=== PATIENT | male | born 1990 | race African-American/Black ===

== ENCOUNTER 2018-10-26 17:54 | Observation (INO) | payer OTHER, SELFPAY ==
[2018-10-26 18:46] LABS: #Basophils 0.1 thou/uL (0.0-0.2); #Eosinphils 0.1 thou/uL (0.0-0.7); #Lymphocytes 2.7 thou/uL (1.20-3.40); #Monocytes 0.6 thou/uL (0.11-0.59); %Basophils 1.4 % (0.0-1.0); %Eosinophils 1.4 % (0.0-10.0); %Lymphocytes 36.1 % (21.0-51.0); %Monocytes 7.6 % (0.0-10.0); %Neutrophils 53.5 % (42.0-75.0); Hemoglobin 14.2 g/dL (14.0-18.0); Mean Corpuscular HGB CONC 33.2 g/dL (32.0-36.0); Mean Corpuscular Hemoglobin 29.3 pg (27.0-31.0); Mean Corpuscular Volume 88.1 fL (78.0-98.0); Mean Platelet Volume 6.5 fL (7.4-10.4); Platelet Count 245 thou/uL (130-400); RBC Distribution Width 11.9 % (11.5-14.5); Red Blood Cell (RBC) Count 4.84 mill/uL (4.70-6.10); White Blood Cell (WBC) Count 7.6 thou/uL (4.8-10.8)
[2018-10-26 19:07] LABS: ALT (SGPT) 16 U/L (8-55); AST (SGOT) 22 U/L (5-34); Albumin 4.1 g/dL (3.5-5.0); Alkaline Phosphatase 70 U/L (40-150); Anion Gap 10 mmol/L (10-20); BUN (Urea Nitrogen) 11 mg/dL (8.9-20.6); Bilirubin, Total 0.7 mg/dL (0.2-1.2); CK (CPK) 956 U/L (30-200); Calc. Creatinine Clearance 0 mL/min (70-130); Calcium 9.1 mg/dL (7.8-10.44); Carbon Dioxide 27 mmol/L (22-29); Chloride 104 mmol/L (98-107); Estimated GFR-MDRD Greater than 90; Globulin 3.2 g/dL (2.4-3.5); Glucose 94 mg/dL (70-105); Lipase 24 U/L (8-78); Potassium 3.3 mmol/L (3.5-5.1); Protein, Total 7.3 g/dL (6.0-8.3); Sodium 138 mmol/L (136-145)
[2018-10-26 19:12] LABS: CKMB 1.6 ng/mL (0-6.6); Troponin I Less than 0.010 ng/mL (< 0.028)
[2018-10-26 19:15] LABS: Bilirubin Negative (Negative); Blood, Urine Negative (Negative); Clarity CLEAR (Clear); Glucose, Urine (Dipstick) Negative (Negative); Leukocyte Negative (Negative); Nitrite Negative (Negative); Protein, Urine (Dipstick) Negative (Neg-Trace)
[2018-10-26 19:26] LABS: Amphetamine Not Detected (NotDetected); Barbiturates Screen Not Detected (NotDetected); Benzodiazepine Screen Not Detected (NotDetected); Cocaine Metabolite Screen Not Detected (NotDetected); Medtox Control Line Valid? VALID (VALID); Medtox Reader # READER 4; Methadone Not Detected (NotDetected); Methamphetamine Not Detected (NotDetected); Opiate Screen Not Detected (NotDetected); Oxycodone Screen Not Detected (NotDetected); Phencyclidine (PCP) Not Detected (NotDetected); THC/Cannabinoid Screen Not Detected (NotDetected); Tricyclic Screen Not Detected (NotDetected)
--- NOTE | 2018-10-26 20:40 | RAD ---
PORTABLE CHEST: HISTORY: Chest pain. COMPARISON: 04/12/2011 FINDINGS: Heart size and mediastinum are within normal limits. A pacemaker is present. The lungs are clear of infiltrates. IMPRESSION: No active intrathoracic disease. POS: [facility]
[2018-10-26 21:58] LABS: Troponin I Less than 0.010 ng/mL (< 0.028)
[2018-10-26] MEDS ORDERED: Acetaminophen 325 MG TAB PO PRN (22:47)
[2018-10-26] MEDS ORDERED: Bisacodyl 5 MG TAB PO PRN (22:47)
[2018-10-26] MEDS ORDERED: Senokot S 8.6-50 MG TAB PO PRN (22:47)
[2018-10-26] MEDS ORDERED: Acetaminophen 325 MG TAB ONE (23:13)
[2018-10-27 00:56] LABS: Troponin I Less than 0.010 ng/mL (< 0.028)
[2018-10-27 01:32] VITALS: BMI 34.1
[2018-10-27] MEDS: Sodium Chloride 0.9% 1,000 ML IV SCH ×3 (01:35→22:34)
[2018-10-27 06:44] LABS: #Basophils 0.1 thou/uL (0.0-0.2); #Eosinphils 0.1 thou/uL (0.0-0.7); #Lymphocytes 2.8 thou/uL (1.20-3.40); #Monocytes 0.7 thou/uL (0.11-0.59); #Neutrophils 4.5 thou/uL (1.40-6.50); %Basophils 0.7 % (0.0-1.0); %Eosinophils 1.6 % (0.0-10.0); %Monocytes 8.1 % (0.0-10.0); %Neutrophils 55.6 % (42.0-75.0); Hemoglobin 13.3 g/dL (14.0-18.0); Mean Corpuscular HGB CONC 33.1 g/dL (32.0-36.0); Mean Corpuscular Hemoglobin 29.5 pg (27.0-31.0); Mean Corpuscular Volume 89.1 fL (78.0-98.0); Mean Platelet Volume 6.7 fL (7.4-10.4); Platelet Count 232 thou/uL (130-400); RBC Distribution Width 11.8 % (11.5-14.5); Red Blood Cell (RBC) Count 4.52 mill/uL (4.70-6.10); White Blood Cell (WBC) Count 8.2 thou/uL (4.8-10.8)
[2018-10-27 06:58] LABS: Anion Gap 11 mmol/L (10-20); BUN (Urea Nitrogen) 13 mg/dL (8.9-20.6); Calc. Creatinine Clearance 235 mL/min (70-130); Calcium 8.7 mg/dL (7.8-10.44); Carbon Dioxide 26 mmol/L (22-29); Cardiac Risk 3.5 (Less than 4.5); Chloride 107 mmol/L (98-107); Cholesterol 137 mg/dl (< 200 Desired); Estimated GFR-MDRD Greater than 90; Glucose 89 mg/dL (70-105); HDL Cholesterol 39 mg/dL (>60 Neg Risk); LDL Cholesterol, Calculated 85 mg/dL; Potassium 3.6 mmol/L (3.5-5.1); Sodium 140 mmol/L (136-145); Triglycerides 65 mg/dL (Less than 150)
--- NOTE | 2018-10-27 07:18 | HP ---
CHIEF COMPLAINT: Chest pain. HISTORY OF PRESENT ILLNESS: This is a 28-year-old male with a past medical history of atrial fibrillation, history of hypertension, status post pacemaker, presenting with chest pain. The patient states that his chest pain started around 1 p.m., on the day of admission and worsened around 3 p.m., on the day of admission. The patient reports having some tingling sensation in his feet and his finger, and his pain was 5/10, sharp in nature, and this prompted him to come to the ED to be examined. At this point, the patient is saying that his chest pain has resolved completely, and he does not have any pain at this time. The patient states that he has a history of syncope when he was young, and the patient stated that due to this syncope and him having heart problems, he was given the pacemaker. At this point, the patient is also asking about his erection. The patient stated that he has not been having good erection, and he is wondering if the medication that he is taking is contributing to this. REVIEW OF SYSTEMS: At this point, the patient denies any chest pain, and the patient reports paresthesias. As documented in the HPI, all systems are reviewed and are negative at this time. PAST MEDICAL HISTORY: Atrial fibrillation, status post pacemaker and hypertension. FAMILY HISTORY: The patient's dad at the age of 58 from heart problem. PAST SURGICAL HISTORY: Pacemaker. PSYCHIATRIC HISTORY: The patient has a history of depression. SOCIAL HISTORY: The patient smokes 1 pack per day. The patient states that he tried to quit, but recently, he just started smoking again and has been smoking heavily since he picked it up again. The patient denies alcohol use, and the patient denies any illicit drug use. ALLERGIES: THE PATIENT IS ALLERGIC TO TRAZODONE. CURRENT MEDICATIONS: The patient takes: 1. Metoprolol tartrate 25 mg. 2. Lisinopril 20 mg. PHYSICAL EXAMINATION: VITAL SIGNS: The patient's blood pressure is 115/60, pulse of 63, respiratory rate of 18, O2 saturation of 100 on room air. GENERAL: The patient is awake, alert, oriented x3, not in acute distress. The patient seemed to be very sleepy every now and then, and the patient drifts off, and the patient was asleep. HEENT: Normocephalic and atraumatic. Pupils are equally round and reactive to light. Extraocular movements are intact. No scleral icterus. No conjunctival pallor. Mucous membranes are moist. NECK: Trachea is midline. Full range of motion. No tracheal deviation. No meningeal signs. LUNGS: Clear to auscultation bilaterally. No wheezing, no rales, no rhonchi appreciated. CARDIAC: The patient has 2/6 ejection murmur. Positive S1 and S2. ABDOMEN: Soft, nontender, and nondistended. Positive bowel sounds in all quadrants. No peritoneal signs. EXTREMITIES: 5/5 upper extremity strength. 5/5 lower extremity strength. No edema noted. Good pulses bilaterally at the upper and lower extremities. NEUROLOGIC: Cranial nerves 2 through 12 grossly intact. No neurologic deficits noted. SKIN: Warm, dry, and intact. DIAGNOSTIC DATA: 12-lead EKG shows normal sinus rhythm with a rate of 96. Chest x-ray shows no infiltrates. No pneumothorax. No hemothorax. No masses. No cardiomegaly. No congestive heart failure. No effusion. No free air. The patient's defibrillator is noted. Chest CT is negative for any PE. LABORATORY DATA: WBC is 7.6, hemoglobin is 14.2, hematocrit is 42.6, RDW of 11.9, platelet count of 245. D-dimer less than 0.27. Sodium is 138, potassium is 3.3, chloride is 104, carbon dioxide of 27, anion gap of 10, BUN is 11, creatinine is 0.83, GFR is less than 90. AST 22, ALT 16. Creatine kinase 956. Troponin x3 has been negative, 0.010. BNP is less than 10. Lipase is 24. Urinalysis is negative. Urine toxicology is also negative. ASSESSMENT AND PLAN: This is a 28-year-old male with extensive cardiac history, presenting with chest pain. At this point, we will rule out acute coronary syndrome. The patient is going to be placed on observation. We are going to monitor the patient, and we are going to get a packer fuser to see the patient in the a.m. We will continue the patient on current regimen. We will get an echo since the patient has not gotten an echo in the past couple of years. History of hypertension. Currently, the patient's blood pressure is controlled. We will continue the patient on current medication. At this point, we will advise that Cardiology evaluate the patient's metoprolol since metoprolol can cause erectile dysfunction to weighing on the benefit of metoprolol versus the patient's erectile dysfunction. The patient is very worried about not being able to have good erection. History of atrial fibrillation, currently not on any anticoagulation at this time. The patient is in sinus rhythm, and the patient has a pacemaker. At this point, we will continue to monitor the patient. History of depression. We will continue the patient on his current medications, and we will continue to monitor the patient closely. Deep venous thrombosis and gastrointestinal prophylaxis. Job ID: [id number]
[2018-10-27] MEDS: Famotidine/PF 20 mg/2ml Vial SLOW IVP SCH ×2 (09:25→22:04)
[2018-10-27] MEDS: Aspirin 325 MG TAB PO SCH (10:27)
[2018-10-27] MEDS: Famotidine 20 MG TAB PO SCH ×2 (10:27→21:07)
--- NOTE | 2018-10-27 13:56 | PDOC.PN ---
- Subjective Encounter Start Date: 10/27/18 Encounter Start Time: 13:55 Pt seen for followup re: chest pain. Denies chest pain at this time. No fevers or chills. - Objective Resuscitation Status - Order Detail: 10/26/18 22:47 Resuscitation Status Routine Resuscitation Status: FULL: Full Resuscitation MAR Reviewed: Yes Vital Signs & Weight: Vital Signs (12 hours) Temp Pulse Resp BP Pulse Ox 10/27/18 11:50 97.7 F 64 16 130/60 98 10/27/18 07:32 98.0 F 64 16 135/66 98 10/27/18 06:32 98 10/27/18 04:52 98.2 F 65 16 131/66 97 Weight Weight 273 lb I&O: 10/26/18 10/27/18 10/28/18 06:59 06:59 06:59 Intake Total 718 Balance 718 Result Diagrams: 10/27/18 06:28 10/27/18 06:28 EKG Reviewed by me: Yes (Tele: NSR) Phys Exam - Physical Examination Obese HEENT: moist MMs, sclera anicteric, oral pharynx no lesions, 2+ tonsils Neck: no nodes, no JVD, supple, full ROM Respiratory: no wheezing, no rales, no rhonchi, clear to auscultation bilateral Cardiovascular: RRR, no rub S1, S2 Gastrointestinal: soft, non-tender, no distention, positive bowel sounds Neurological: moves all 4 limbs Psychiatric: normal affect, A&O x 3 Dx/Plan (1) Chest pain Code(s): R07.9 - CHEST PAIN, UNSPECIFIED Status: Acute Comment: monitor on telemetry. Troponins negative. Interrogate PPM. (2) HTN (hypertension) Code(s): I10 - ESSENTIAL (PRIMARY) HYPERTENSION Status: Chronic Comment: controlled (3) Dyslipidemia Code(s): E78.5 - HYPERLIPIDEMIA, UNSPECIFIED Status: Chronic Comment: continue statin - Plan * . Review of Systems - Review of Systems Constitutional: negative: fever, chills, sweats, weakness, malaise Respiratory: negative: Cough, Shortness of Breath, SOB with Excertion, Pleuritic Pain, Wheezing Cardiovascular: negative: chest pain, palpitations, orthopnea, paroxysmal nocturnal dyspnea, edema, light headedness Gastrointestinal: negative: Nausea, Vomiting, Abdominal Pain, Diarrhea, Constipation, Melena, Hematochezia Genitourinary: negative: Dysuria, Frequency, Incontinence, Hematuria, Retention Skin: negative: Rash, Lesions, Jim, Bruising - Medications/Allergies Allergies/Adverse Reactions: Allergies Allergy/AdvReac Type Severity Reaction Status Date / Time trazodone Allergy Verified 10/26/18 22:57 Medications: Current Medications Acetaminophen (Tylenol) 650 mg PO Q4H PRN PRN Reason: Headache/Fever/Mild Pain (1-3) Aspirin (Aspirin) 325 mg PO DAILY [facility] Last Admin: 10/27/18 10:27 Dose: 325 mg Bisacodyl (Dulcolax) 10 mg PO DAILYPRN PRN PRN Reason: Constipation Famotidine (Pepcid) 20 mg SLOW IVP Q12HR [facility] Last Admin: 10/27/18 09:25 Dose: Not Given Famotidine (Pepcid) 20 mg PO BID [facility] Last Admin: 10/27/18 10:27 Dose: 20 mg Sodium Chloride (Normal Saline 0.9%) 1,000 mls @ 100 mls/hr IV .Q10H [facility] Last Admin: 10/27/18 11:56 Dose: 1,000 mls Senna/Docusate Sodium (Senokot S) 2 tab PO BIDPRN PRN PRN Reason: Constipation Sodium Chloride (Flush - Normal Saline) 10 ml IVF Q12HR [facility] Last Admin: 10/27/18 10:27 Dose: Not Given Sodium Chloride (Flush - Normal Saline) 10 ml IVF PRN PRN PRN Reason: Saline Flush
[2018-10-27] MEDS ORDERED: Potassium Chloride 20 MEQ TAB PO SCH (17:00)
[2018-10-27] MEDS: Metoprolol Tartrate 25 MG TAB PO SCH (21:07)
--- NOTE | 2018-10-28 04:14 | CON ---
DATE OF CONSULTATION: HISTORY OF PRESENT ILLNESS: Alvin Encarnacion is a 28-year-old black male, who I initially evaluated in November 2009. At that time, he had chest discomfort associated with shortness of breath and at times with the chest discomfort, he would have syncopal episode. He had had near syncopal episodes since the age of 16. Echo revealed ejection fraction of 40% to 45%. During the hospital stay, he would occasionally have episodes of bradycardia with heart rates in the 40s. He underwent a tilt-table testing by Dr. Grewal, which was negative. He underwent Cardiolite treadmill test and exercised for 9 minutes and 30 seconds. He had early repolarization on his EKG with normalization of the ST-segment during exercise. EKG was negative for ischemia. Cardiolite revealed no evidence of stress-induced ischemia, but with hypokinesis with ejection fraction of 48%. In May 2010, he was again admitted with chest discomfort, found to have rhabdomyolysis with CK increased to 12,000 and then 20,000. He was given IV hydration. Ejection fraction again was 45% to 50%. He continued to have recurrent syncope, ultimately he underwent electrophysiology study by Dr. Kelly, which did not show any specific conduction system disease or inducible arrhythmias. An implantable loop recorder was placed. He had another syncopal episode and was brought to the emergency room and on interrogation of the device, it was found that he had pauses up to 15 seconds. He therefore underwent explantation of the implantable loop recorder and placement of a dual-chamber pacemaker. I saw him once in the office after that, but I have not seen him since 2010. He states that he got out of snf one week ago. He was having intercourse and had problems with erection and then began to have sharp stabbing chest discomfort. This chest discomfort would wax and wane, but was continuously present for 4 hours. The discomfort also was pleuritic in nature. Cardiac enzymes have been unremarkable. PAST MEDICAL HISTORY: Hypertension. PAST SURGICAL HISTORY: Operation, pacemaker placement. SOCIAL HISTORY: He smokes one pack per day. He does not drink. MEDICATIONS: 1. Metoprolol 25 mg daily. 2. Lisinopril 20 daily. 3. Hydrochlorothiazide 25 daily. 4. Pravastatin 10 at bedtime. REVIEW OF SYSTEMS: Unremarkable except as noted above. PHYSICAL EXAMINATION: VITAL SIGNS: Blood pressure 139/70, pulse of 87. HEENT: PERRL. NECK: Supple. CHEST: Clear. CARDIAC EXAMINATION: S1 and S2 were normal without any S3, S4, murmurs, or rubs. ABDOMEN: Normal bowel sounds without tenderness or organomegaly. EXTREMITIES: Revealed no clubbing, cyanosis, or edema. NEUROLOGICAL: Grossly intact. SKIN: Warm and dry. LABORATORY DATA: Laboratory interrogation of his pacemaker shows that he does have episodes of high atrial rates at times. Last episode was on October 25 with the longest episode being 50 minutes. The time he noted these episodes do not correlate with his episodes of chest discomfort. EKG revealed normal sinus rhythm and is unremarkable. Cardiac enzymes are normal. Hemoglobin 13.3, hematocrit 40.3, white count 8200, platelets 232,000. Sodium 140, potassium 3.6, chloride 107, carbon dioxide 26, BUN 13, creatinine 0.82. Cholesterol 137, triglycerides 65, HDL 39, LDL 85. CK was 956 with a normal CK-MB. IMPRESSION: 1. Atypical chest discomfort with 4 hours of pleuritic chest pain and normal cardiac enzymes. 2. Status post pacemaker placement for 15 seconds of asystole on his loop recorder. 3. Hypertension. 4. Hypercholesterolemia. 5. Smoker. PLAN: Mr. Encarnacion's chest discomfort is very atypical for cardiac pain. He will undergo adenosine Cardiolite testing and if this is normal, I do not feel that any further cardiac evaluation is warranted. Job ID: [id number]
[2018-10-28 04:26] LABS: #Basophils 0.1 thou/uL (0.0-0.2); #Eosinphils 0.1 thou/uL (0.0-0.7); #Lymphocytes 2.7 thou/uL (1.20-3.40); #Monocytes 0.7 thou/uL (0.11-0.59); #Neutrophils 4.8 thou/uL (1.40-6.50); %Basophils 1.2 % (0.0-1.0); %Eosinophils 1.6 % (0.0-10.0); %Lymphocytes 32.2 % (21.0-51.0); %Monocytes 8.3 % (0.0-10.0); %Neutrophils 56.6 % (42.0-75.0); Hemoglobin 13.5 g/dL (14.0-18.0); Mean Corpuscular HGB CONC 33.5 g/dL (32.0-36.0); Mean Corpuscular Hemoglobin 29.7 pg (27.0-31.0); Mean Corpuscular Volume 88.6 fL (78.0-98.0); Mean Platelet Volume 6.7 fL (7.4-10.4); Platelet Count 246 thou/uL (130-400); RBC Distribution Width 11.8 % (11.5-14.5); Red Blood Cell (RBC) Count 4.55 mill/uL (4.70-6.10); White Blood Cell (WBC) Count 8.4 thou/uL (4.8-10.8)
[2018-10-28 04:45] LABS: ALT (SGPT) 12 U/L (8-55); AST (SGOT) 15 U/L (5-34); Albumin 3.6 g/dL (3.5-5.0); Alkaline Phosphatase 65 U/L (40-150); Anion Gap 8 mmol/L (10-20); BUN (Urea Nitrogen) 11 mg/dL (8.9-20.6); Bilirubin, Total 0.3 mg/dL (0.2-1.2); Calc. Creatinine Clearance 249 mL/min (70-130); Calcium 8.7 mg/dL (7.8-10.44); Carbon Dioxide 25 mmol/L (22-29); Chloride 108 mmol/L (98-107); Estimated GFR-MDRD Greater than 90; Globulin 2.9 g/dL (2.4-3.5); Glucose 97 mg/dL (70-105); Protein, Total 6.5 g/dL (6.0-8.3); Sodium 137 mmol/L (136-145)
[2018-10-28] MEDS: Aspirin 325 MG TAB PO SCH (08:15)
[2018-10-28] MEDS: Famotidine 20 MG TAB PO SCH (08:16)
[2018-10-28] MEDS: Sodium Chloride 0.9% 1,000 ML IV SCH (08:48)
[2018-10-28] MEDS ORDERED: Pravastatin Sodium 20 MG TAB PO SCH (09:00)
[2018-10-28] MEDS ORDERED: Hydrochlorothiazide 25 MG TAB PO SCH (09:00)
[2018-10-28] MEDS ORDERED: Lisinopril 20 MG TAB PO SCH (09:00)
[2018-10-28] MEDS: Metoprolol Tartrate 25 MG TAB PO SCH (09:18)
--- NOTE | 2018-10-28 15:55 | NM ---
NUCLEAR MEDICINE CARDIAC MYOCARDIAL PERFUSION SPECT EJECTION FRACTION STUDY WALL MOTION CINE: 10/28/18 HISTORY: 28-year-old hypertensive male smoker presents with chest pain. TECHNIQUE: Number of days: One. Rest study: Tc99m sestamibi (Cardiolite) dose: 10 mCi Pharmacologic stress: adenosine dose: 69.4 mg Stress study: Tc99m sestamibi (Cardiolite) dose: 33 mCi FINDINGS: CARDIAC (MYOCARDIAL PERFUSION) SPECT There are no reversible myocardial perfusion defects. EJECTION FRACTION STUDY EF = 63% WALL MOTION CINE Normal. IMPRESSION: No evidence of reversible ischemia. HARPAL Long POS: [facility]
[2018-10-28 16:00] VITALS: BP 118/64; TEMP 98.1
--- NOTE | 2018-10-29 03:23 | DIS ---
DATE OF ADMISSION: 10/26/2018 DATE OF DISCHARGE: 10/28/2018 PRIMARY CARE PROVIDER: None. DISCHARGE DIAGNOSES: 1. Chest pain. 2. Most likely musculoskeletal etiology for chest pain. CONSULTATIONS DURING THIS HOSPITALIZATION: Cardiology, Dr. Cedillo. CONDITION OF PATIENT ON THE DAY OF DISCHARGE: Stable. I assessed Mr. Encarnacion on the day of discharge. He denies any chest pain or shortness of breath. Vital signs are stable. S1 and S2 are heard, regular. Lungs are clear to auscultation bilaterally. DISCHARGE MEDICATIONS: No change was made to the preadmission home medications as dictated by Dr. Santos in his history and physical note dated October 27, 2018. HOSPITAL COURSE: Mr. Encarnacion is a pleasant 28-year-old gentleman, who was admitted to [facility] on October 26, 2018 for chest pain. Please refer to Dr. Santos's history and physical note dated October 27, 2018 for further details. He was seen by Cardiology Service. He had a nuclear stress test on October 28, 2018, which did not show any evidence of reversible ischemia. Pulmonary embolism was ruled out with a negative D-dimer. He improved clinically, and is being discharged home in a stable condition. LABORATORY DATA: On the day of discharge, he has a sodium of 137, potassium 4.0 , and creatinine 0.77. White count 8400, hemoglobin 13.5, and platelet count 246, 000. During this hospitalization, his triglycerides were 65, cholesterol 137, LDL cholesterol 85, and HDL cholesterol 39. DISCHARGE DESTINATION: Home. Job ID: [id number] MTDD
--- NOTE | 2018-10-31 11:56 | EKG ---
Test Reason : Blood Pressure : / mmHG Vent. Rate : 096 BPM Atrial Rate : 096 BPM P-R Int : 182 ms QRS Dur : 080 ms QT Int : 334 ms P-R-T Axes : 052 047 038 degrees QTc Int : 421 ms Normal sinus rhythm Normal ECG Confirmed by AGATA YORK, DAVIDSON ([id number]), fan mail editor TERI ROMO ([id number]) on 10/31/2018 11:56:47 AM Referred By: Confirmed By:DAVIDSON PARMAR MD
== END 2018-10-28 17:15 | disposition home or self-care (01) ==
LOC: ERS 17:54 → ERHOLD 20:12 → 2SW 10-27
PROVIDERS: ADMIT Internal Medicine; ATTEND Internal Medicine
DX: R07.89 Other chest pain (principal); I10 Essential (primary) hypertension; I48.91 Unspecified atrial fibrillation; F32.9 Major depressive disorder, single episode, unspecified; F17.210 Nicotine dependence, cigarettes, uncomplicated; E78.00 Pure hypercholesterolemia, unspecified; Z79.899 Other long term (current) drug therapy; Z79.82 Long term (current) use of aspirin; Z95.0 Presence of cardiac pacemaker; Z95.818 Presence of other cardiac implants and grafts; Z88.8 Allergy status to other drugs, medicaments and biological substances
CPT/HCPCS: 36415; 71045; 78452; 80048; 80053; 80061; 80306; 81003; 82553; 83690; 83880; 84484; 85025; 85379; 90471; 90686; 93005; 93017; 93306; 94760; 96360; 96361; A9500; G0008; G0378; J0153; S0028

== ENCOUNTER 2019-02-06 20:38 | Emergency (ER) | payer SELFPAY ==
[2019-02-06] MEDS ORDERED: Ketorolac Tromethamine 30 MG/ML VIAL ONE (21:01)
[2019-02-06 21:07] LABS: #Basophils 0.1 thou/uL (0.0-0.2); #Eosinphils 0.2 thou/uL (0.0-0.7); #Lymphocytes 3.1 thou/uL (1.20-3.40); #Monocytes 0.6 thou/uL (0.11-0.59); #Neutrophils 5.6 thou/uL (1.40-6.50); %Basophils 0.9 % (0.0-1.0); %Eosinophils 2.2 % (0.0-10.0); %Lymphocytes 32.2 % (21.0-51.0); %Monocytes 6.5 % (0.0-10.0); Mean Corpuscular Hemoglobin 29.6 pg (27.0-31.0); Mean Corpuscular Volume 89.9 fL (78.0-98.0); Mean Platelet Volume 6.8 fL (7.4-10.4); Platelet Count 249 thou/uL (130-400); RBC Distribution Width 12.1 % (11.5-14.5); Red Blood Cell (RBC) Count 5.07 mill/uL (4.70-6.10); White Blood Cell (WBC) Count 9.7 thou/uL (4.8-10.8)
--- NOTE | 2019-02-06 21:19 | RAD ---
CHEST TWO VIEWS: 02/06/19 HISTORY: Chest pain. Difficulty breathing. Dizziness. COMPARISON: 10/26/18. FINDINGS: Left ICD. Monitor leads overlie the chest. Old granuloma calcification in the left lower lobe. No con fluent pneumonia, overt edema, or pleural effusion. IMPRESSION: No significant acute intrathoracic disease. Old granulomatous disease. Stable from prior study. POS: [facility]
[2019-02-06 21:27] LABS: Anion Gap 11 mmol/L (10-20); BUN (Urea Nitrogen) 15 mg/dL (8.9-20.6); Calc. Creatinine Clearance 0 mL/min (70-130); Carbon Dioxide 24 mmol/L (22-29); Chloride 107 mmol/L (98-107); Estimated GFR-MDRD Greater than 90; Glucose 104 mg/dL (70-105); Sodium 138 mmol/L (136-145)
== END 2019-02-06 21:47 | disposition home or self-care (01) ==
LOC: ERS 20:38
DX: R00.0 Tachycardia, unspecified (principal); R07.9 Chest pain, unspecified; F32.9 Major depressive disorder, single episode, unspecified; F17.210 Nicotine dependence, cigarettes, uncomplicated; I48.91 Unspecified atrial fibrillation; I10 Essential (primary) hypertension; Z71.6 Tobacco abuse counseling; Z79.899 Other long term (current) drug therapy
CPT/HCPCS: 71046; 80048; 84484; 85025; 93005; 96374; 99406; J1885

== ENCOUNTER 2019-03-01 18:55 | Emergency (ER) | payer SELFPAY ==
--- NOTE | 2019-03-01 20:05 | RAD ---
PA AND LATERAL VIEWS OF THE CHEST: HISTORY: Cough COMPARISON: 02/06/2019 FINDINGS: Left ICD. Old granuloma calcification in the left lower lobe. No confluent pneumonia, overt edema, o r pleural effusion. IMPRESSION: No significant acute intrathoracic disease. Old granulomatous disease. Stable from prior study.
[2019-03-01 20:32] LABS: #Eosinphils 0.1 thou/uL (0.0-0.7); #Lymphocytes 2.9 thou/uL (1.20-3.40); #Monocytes 1.3 thou/uL (0.11-0.59); #Neutrophils 6.4 thou/uL (1.40-6.50); %Basophils 0.3 % (0.0-1.0); %Eosinophils 0.6 % (0.0-10.0); %Lymphocytes 26.9 % (21.0-51.0); %Monocytes 12.4 % (0.0-10.0); %Neutrophils 59.8 % (42.0-75.0); Hemoglobin 15.1 g/dL (14.0-18.0); Mean Corpuscular HGB CONC 32.8 g/dL (32.0-36.0); Mean Corpuscular Volume 88.5 fL (78.0-98.0); Mean Platelet Volume 6.9 fL (7.4-10.4); Platelet Count 227 thou/uL (130-400); RBC Distribution Width 12.2 % (11.5-14.5); White Blood Cell (WBC) Count 10.7 thou/uL (4.8-10.8)
[2019-03-01] MEDS ORDERED: Acetaminophen 500 MG TAB ONE ×2 (20:36→22:18)
[2019-03-01 21:00] LABS: ALT (SGPT) 22 U/L (8-55); AST (SGOT) 23 U/L (5-34); Albumin 4.1 g/dL (3.5-5.0); Alkaline Phosphatase 65 U/L (40-150); Anion Gap 12 mmol/L (10-20); BUN (Urea Nitrogen) 13 mg/dL (8.9-20.6); Bilirubin, Total 0.4 mg/dL (0.2-1.2); Calc. Creatinine Clearance 0 mL/min (70-130); Calcium 9.1 mg/dL (7.8-10.44); Carbon Dioxide 26 mmol/L (22-29); Chloride 102 mmol/L (98-107); Estimated GFR-MDRD Greater than 90; Globulin 3.5 g/dL (2.4-3.5); Glucose 94 mg/dL (70-105); Potassium 3.9 mmol/L (3.5-5.1); Protein, Total 7.6 g/dL (6.0-8.3); Sodium 136 mmol/L (136-145)
[2019-03-01] MEDS ORDERED: Ibuprofen 800 MG TAB ONE (22:46)
[2019-03-01 22:57] LABS: Bilirubin Negative (Negative); Blood, Urine Negative (Negative); Clarity CLEAR (Clear); Glucose, Urine (Dipstick) Negative (Negative); Leukocyte Negative (Negative); Nitrite Negative (Negative); Protein, Urine (Dipstick) 30 mg/dL (Neg-Trace); Specific Gravity, Urine 1.029 (1.002-1.036)
[2019-03-01 22:59] LABS: Bacteria/HPF None Seen HPF (None Seen); Hyaline Casts/LPF 0-3 HYALINE CAST LPF (0-3 Hyaline); Squamous Epithelial None Seen HPF (0-3); WBC/HPF 0-3 HPF (0-3)
== END 2019-03-01 22:58 | disposition home or self-care (01) ==
LOC: ERS 18:55
DX: J18.9 Pneumonia, unspecified organism (principal); I10 Essential (primary) hypertension; F32.9 Major depressive disorder, single episode, unspecified; F17.210 Nicotine dependence, cigarettes, uncomplicated; Z79.899 Other long term (current) drug therapy
CPT/HCPCS: 36415; 71046; 80053; 81003; 81015; 83605; 85025; 87081; 87430; 87804; 94640; J7620

== ENCOUNTER 2019-04-19 02:42 | Emergency (ER) | payer MEDICAID, OTHER ==
[2019-04-19] MEDS ORDERED: Ketorolac Tromethamine 60 MG/2 ML VIAL ONE (03:12)
[2019-04-19 03:29] LABS: Bilirubin Negative (Negative); Blood, Urine Negative (Negative); Clarity CLEAR (Clear); Glucose, Urine (Dipstick) Negative (Negative); Leukocyte Negative (Negative); Nitrite Negative (Negative); Protein, Urine (Dipstick) Negative (Neg-Trace)
== END 2019-04-19 03:58 | disposition home or self-care (01) ==
LOC: ERS 02:42
DX: N48.1 Balanitis (principal); N47.1 Phimosis; I48.91 Unspecified atrial fibrillation; I10 Essential (primary) hypertension; F32.9 Major depressive disorder, single episode, unspecified; F17.210 Nicotine dependence, cigarettes, uncomplicated
CPT/HCPCS: 36416; 81003; J1885

== ENCOUNTER 2019-04-19 23:03 | Emergency (ER) | payer OTHER ==
[2019-04-21 00:59] LABS: Chlam.trachomatis by PCR,Urine Not Detected (NotDetected)
== END 2019-04-20 00:25 | disposition home or self-care (01) ==
LOC: ERS 23:03
DX: S30.815A Abrasion of unspecified external genital organs, male, initial encounter (principal); N48.1 Balanitis; I10 Essential (primary) hypertension; I48.91 Unspecified atrial fibrillation; F17.210 Nicotine dependence, cigarettes, uncomplicated; F31.9 Bipolar disorder, unspecified; X58.XXXA Exposure to other specified factors, initial encounter
CPT/HCPCS: 36416; 81003; 87491; 87591; 96372; 99283; J1885

== ENCOUNTER 2019-05-02 08:37 | Emergency (ER) | payer OTHER | END 2019-05-02 10:03 | disposition home or self-care (01) | LOC: ERS 08:37 | DX: J02.9 Acute pharyngitis, unspecified (principal); I10 Essential (primary) hypertension; F31.9 Bipolar disorder, unspecified; F17.210 Nicotine dependence, cigarettes, uncomplicated; I48.91 Unspecified atrial fibrillation | CPT/HCPCS: 87081; 87430; 99283 ==

== ENCOUNTER 2019-07-27 03:27 | Observation (INO) | payer OTHER ==
[2019-07-27 04:06] LABS: #Basophils 0.1 thou/uL (0.0-0.2); #Eosinphils 0.2 thou/uL (0.0-0.7); #Lymphocytes 2.9 thou/uL (1.20-3.40); #Monocytes 0.7 thou/uL (0.11-0.59); #Neutrophils 2.4 thou/uL (1.40-6.50); %Basophils 1.8 % (0.0-1.0); %Eosinophils 2.7 % (0.0-10.0); %Lymphocytes 46.3 % (21.0-51.0); %Monocytes 10.8 % (0.0-10.0); %Neutrophils 38.4 % (42.0-75.0); Hemoglobin 14.3 g/dL (14.0-18.0); Mean Corpuscular HGB CONC 34.8 g/dL (32.0-36.0); Mean Corpuscular Hemoglobin 30.4 pg (27.0-31.0); Mean Corpuscular Volume 87.4 fL (78.0-98.0); Mean Platelet Volume 6.9 fL (7.4-10.4); Platelet Count 218 thou/uL (130-400); RBC Distribution Width 12.3 % (11.5-14.5); White Blood Cell (WBC) Count 6.3 thou/uL (4.8-10.8)
[2019-07-27 04:24] LABS: Bilirubin Negative (Negative); Blood, Urine Negative (Negative); Clarity Clear (Clear); Glucose, Urine (Dipstick) Normal (Negative); Leukocyte Negative Leu/uL (Negative); Nitrite Negative (Negative); Protein, Urine (Dipstick) 10 mg/dL (Neg-Trace)
[2019-07-27 04:26] LABS: ALT (SGPT) 42 U/L (8-55); AST (SGOT) 31 U/L (5-34); Acetaminophen Less than 6.0 mcg/mL (10.0-30.0); Albumin 3.8 g/dL (3.5-5.0); Alcohol Less than 10 mg/dL (Less than 10); Alkaline Phosphatase 68 U/L (40-150); Anion Gap 10 mmol/L (10-20); BUN (Urea Nitrogen) 13 mg/dL (8.9-20.6); Bilirubin, Total 0.2 mg/dL (0.2-1.2); CK (CPK) 200 U/L (30-200); Calc. Creatinine Clearance 0 mL/min (70-130); Calcium 8.7 mg/dL (7.8-10.44); Carbon Dioxide 23 mmol/L (22-29); Chloride 109 mmol/L (98-107); Estimated GFR-MDRD Greater than 90; Glucose 122 mg/dL (70-105); Lipase 40 U/L (8-78); Potassium 3.5 mmol/L (3.5-5.1); Protein, Total 6.8 g/dL (6.0-8.3); Salicylate Less than 8.0 mg/dL (15.0-30.0); Sodium 138 mmol/L (136-145)
[2019-07-27] MEDS ORDERED: Morphine 4 MG/ML VIAL ONE (04:32)
[2019-07-27] MEDS ORDERED: Nitroglycerin 2% Ointment 1 INCH/1 GM Packet ONE (04:32)
[2019-07-27 04:39] LABS: Medtox Reader # READER 1; Phencyclidine (PCP) Not Detected (NotDetected); THC/Cannabinoid Screen Not Detected (NotDetected)
[2019-07-27 04:40] LABS: Amphetamine Not Detected (NotDetected); Barbiturates Screen Not Detected (NotDetected); Benzodiazepine Screen Not Detected (NotDetected); Cocaine Metabolite Screen Not Detected (NotDetected); Medtox Control Line Valid? VALID (VALID); Methadone Not Detected (NotDetected); Methamphetamine Not Detected (NotDetected); Opiate Screen Not Detected (NotDetected); Oxycodone Screen Not Detected (NotDetected); Tricyclic Screen Not Detected (NotDetected)
[2019-07-27 07:18] LABS: Troponin I Less than 0.010 ng/mL (< 0.028)
--- NOTE | 2019-07-27 10:13 | RAD ---
FRONTAL VIEW CHEST: INDICATIONS: Cough. COMPARISON: 03/01/2019 FINDINGS: There is interstitial prominence of the lungs bilaterally. No lobar consolidation or effusion. Left -sided cardiac pacing device remains. Cardiac silhouette is stable. IMPRESSION: Interstitial prominence bilaterally. This could be on the basis of edema or pneumonitis. Recommend clinical correlation and, as necessary, imaging followup may be obtained. POS: [facility]
[2019-07-27 10:30] LABS: Troponin I Less than 0.010 ng/mL (< 0.028)
--- NOTE | 2019-07-27 12:36 | PDOC.EVN ---
Event Note - Event Note Event Note: Patient left against medical advice from emergency department prior to further workup for chest pain and prior to admitting team to thoroughly examine patient.
--- NOTE | 2019-08-01 00:35 | EKG ---
Test Reason : CP Blood Pressure : / mmHG Vent. Rate : 065 BPM Atrial Rate : 065 BPM P-R Int : 204 ms QRS Dur : 076 ms QT Int : 376 ms P-R-T Axes : 048 034 026 degrees QTc Int : 391 ms Normal sinus rhythm Normal ECG Confirmed by HOMA JOHNSON ([id number]), editorial cartoonist ESTELA KERR ([id number]) on 08/01/2019 12:35:13 AM Referred By: ALEX Confirmed By:HOMA JOHNSON
== END 2019-07-27 12:00 | disposition left against medical advice (07) ==
LOC: ERS 03:27 → ERHOLD 06:39
PROVIDERS: ADMIT Hospitalist; ATTEND Hospitalist
DX: R07.9 Chest pain, unspecified (principal); I11.0 Hypertensive heart disease with heart failure; I50.9 Heart failure, unspecified; I48.91 Unspecified atrial fibrillation; Z88.8 Allergy status to other drugs, medicaments and biological substances; Z91.14 Patient's other noncompliance with medication regimen; Z95.0 Presence of cardiac pacemaker
CPT/HCPCS: 36415; 71045; 80053; 80306; 80307; 81003; 82550; 83690; 84484; 85025; 85379; 93005; 96374; J2270

== ENCOUNTER 2019-11-05 13:34 | Inpatient (IN) | payer OTHER ==
[~2019-11-05 13:34] MED LIST: Iopamidol-370 76% 500 ML 1 ML ONE
[2019-11-05] MEDS ORDERED: Ondansetron PF 4 MG/2 ML Vial ONE (13:54)
[2019-11-05] MEDS ORDERED: Adacel (T-DAP) 0.5 ML SYRINGE ONE ×2 (13:54→15:11)
[2019-11-05] MEDS ORDERED: Morphine 4 MG/ML VIAL ONE (13:54)
[2019-11-05 13:57] LABS: #Eosinphils 0.2 thou/uL (0.0-0.7); #Lymphocytes 3.3 thou/uL (1.20-3.40); #Monocytes 0.5 thou/uL (0.11-0.59); #Neutrophils 4.3 thou/uL (1.40-6.50); %Basophils 0.5 % (0.0-1.0); %Eosinophils 2.2 % (0.0-10.0); %Lymphocytes 39.5 % (21.0-51.0); %Monocytes 6.1 % (0.0-10.0); %Neutrophils 51.7 % (42.0-75.0); Hemoglobin 15.1 g/dL (14.0-18.0); Mean Corpuscular HGB CONC 34.6 g/dL (32.0-36.0); Mean Corpuscular Hemoglobin 30.5 pg (27.0-31.0); Mean Corpuscular Volume 88.4 fL (78.0-98.0); Mean Platelet Volume 7.9 fL (7.4-10.4); Platelet Count 241 thou/uL (130-400); Red Blood Cell (RBC) Count 4.93 mill/uL (4.70-6.10); White Blood Cell (WBC) Count 8.3 thou/uL (4.8-10.8)
[2019-11-05 14:03] LABS: PTT 26.3 SEC (22.9-36.1); Prothrombin Time 13.1 SEC (12.0-14.7)
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
--- NOTE | 2019-11-05 14:28 | RAD ---
Exam:2 views right tibia fibula HISTORY: Pain. Injury. COMPARISON: None FINDINGS: No fracture, cortical irregularity or periosteal reaction. IMPRESSION: No fracture.
[2019-11-05 15:04] LABS: ALT (SGPT) 23 U/L (8-55); AST (SGOT) 34 U/L (5-34); Albumin 3.9 g/dL (3.5-5.0); Alcohol Less than 10 mg/dL (Less than 10); Alkaline Phosphatase 74 U/L (40-110); Anion Gap 11 mmol/L (10-20); BUN (Urea Nitrogen) 13 mg/dL (8.9-20.6); Bilirubin, Total 0.4 mg/dL (0.2-1.2); Calc. Creatinine Clearance 0 mL/min (70-130); Calcium 8.6 mg/dL (7.8-10.44); Carbon Dioxide 23 mmol/L (22-29); Chloride 106 mmol/L (98-107); Estimated GFR-MDRD Greater than 90; Globulin 3.3 g/dL (2.4-3.5); Glucose 81 mg/dL (70-105); Potassium 4.3 mmol/L (3.5-5.1); Protein, Total 7.2 g/dL (6.0-8.3); Sodium 136 mmol/L (136-145)
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
[2019-11-05] MEDS ORDERED: Aspirin Chewable 81 MG TAB ONE (15:43)
[2019-11-05 17:51] LABS: Troponin I Less than 0.010 ng/mL (< 0.028)
[2019-11-05] MEDS ORDERED: HYDROcodone/Acetaminophen 7.5/325 mg Tablet PO PRN (18:44)
[2019-11-05] MEDS ORDERED: Sodium Chloride 0.9% 1,000 ML IV SCH (18:45)
[2019-11-05] MEDS: HYDROcodone/Acetaminophen 7.5/325 mg Tablet PO PRN ×2 (19:07→23:53)
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
[2019-11-05] MEDS: Famotidine 20 MG TAB PO SCH (20:18)
[2019-11-05] MEDS: Simvastatin 5 MG TAB PO SCH (20:18)
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
[2019-11-05 20:53] LABS: Troponin I Less than 0.010 ng/mL (< 0.028)
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
[2019-11-05] MEDS: Morphine 2 MG/ML SYRINGE SLOW IVP PRN (21:50)
[2019-11-06 00:43] LABS: Amphetamine Not Detected (NotDetected); Barbiturates Screen Not Detected (NotDetected); Benzodiazepine Screen Not Detected (NotDetected); Cocaine Metabolite Screen Not Detected (NotDetected); Medtox Control Line Valid? VALID (VALID); Medtox Reader # READER 4; Methadone Not Detected (NotDetected); Methamphetamine Not Detected (NotDetected); Opiate Screen Detected (NotDetected); Oxycodone Screen Not Detected (NotDetected); Phencyclidine (PCP) Not Detected (NotDetected); THC/Cannabinoid Screen Not Detected (NotDetected); Tricyclic Screen Not Detected (NotDetected)
[2019-11-06] MEDS: Morphine 2 MG/ML SYRINGE SLOW IVP PRN ×4 (04:50→21:20)
[2019-11-06 05:53] LABS: #Eosinphils 0.2 thou/uL (0.0-0.7); #Lymphocytes 3.3 thou/uL (1.20-3.40); #Monocytes 0.6 thou/uL (0.11-0.59); #Neutrophils 3.4 thou/uL (1.40-6.50); %Basophils 0.6 % (0.0-1.0); %Eosinophils 2.7 % (0.0-10.0); %Lymphocytes 43.7 % (21.0-51.0); %Monocytes 7.8 % (0.0-10.0); %Neutrophils 45.1 % (42.0-75.0); Hemoglobin 13.7 g/dL (14.0-18.0); Mean Corpuscular HGB CONC 34.3 g/dL (32.0-36.0); Mean Corpuscular Hemoglobin 30.3 pg (27.0-31.0); Mean Corpuscular Volume 88.4 fL (78.0-98.0); Mean Platelet Volume 6.8 fL (7.4-10.4); Platelet Count 232 thou/uL (130-400); RBC Distribution Width 11.8 % (11.5-14.5); Red Blood Cell (RBC) Count 4.53 mill/uL (4.70-6.10); White Blood Cell (WBC) Count 7.5 thou/uL (4.8-10.8)
[2019-11-06 06:20] LABS: ALT (SGPT) 19 U/L (8-55); AST (SGOT) 19 U/L (5-34); Albumin 3.7 g/dL (3.5-5.0); Alkaline Phosphatase 68 U/L (40-110); Anion Gap 9 mmol/L (10-20); BUN (Urea Nitrogen) 12 mg/dL (8.9-20.6); Bilirubin, Total 0.4 mg/dL (0.2-1.2); Calc. Creatinine Clearance 259 mL/min (70-130); Calcium 8.1 mg/dL (7.8-10.44); Carbon Dioxide 25 mmol/L (22-29); Cardiac Risk 4.9 (Less than 4.5); Chloride 106 mmol/L (98-107); Cholesterol 153 mg/dl (< 200 Desired); Estimated GFR-MDRD Greater than 90; Globulin 2.8 g/dL (2.4-3.5); Glucose 101 mg/dL (70-105); HDL Cholesterol 31 mg/dL (>60 Neg Risk); LDL Cholesterol, Calculated 109 mg/dL; Protein, Total 6.5 g/dL (6.0-8.3); Sodium 136 mmol/L (136-145); Triglycerides 63 mg/dL (Less than 150)
[2019-11-06] MEDS ORDERED: FLU VACC QS2019-20(6MOS UP)/PF 60 MCG/0.5 ML SYRINGE IM ONE (09:00)
--- NOTE | 2019-11-06 09:13 | PDOC.EVN ---
Event Note - Event Note Event Note: Doing ok. Up in wheelchair to get out of his room for a little while. His knee is feeling better. His right wrist is sore and his chest is sore. Had some tachycardia with rate 140's with getting up to the bathroom. His PPM report indicates a fair amount of atrial tachycardia. Trops negative. Await echo and cardiology consult.
[2019-11-06] MEDS: Senokot S 8.6-50 MG TAB PO PRN ×2 (09:41→20:15)
[2019-11-06] MEDS: Lisinopril 20 MG TAB PO SCH (09:42)
[2019-11-06] MEDS: Enoxaparin Sodium 40 MG/0.4 ML SYRINGE SC SCH (09:42)
[2019-11-06] MEDS: Famotidine 20 MG TAB PO SCH ×2 (09:42→20:15)
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
[2019-11-06] MEDS: Simvastatin 5 MG TAB PO SCH (20:15)
[2019-11-07] MEDS: Enoxaparin Sodium 40 MG/0.4 ML SYRINGE SC SCH (08:28)
[2019-11-07] MEDS: HYDROcodone/Acetaminophen 7.5/325 mg Tablet PO PRN ×3 (08:28→17:20)
[2019-11-07] MEDS: Famotidine 20 MG TAB PO SCH ×2 (08:28→20:46)
[2019-11-07] MEDS: Lisinopril 20 MG TAB PO SCH (08:28)
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
[2019-11-07] MEDS: Simvastatin 5 MG TAB PO SCH (20:46)
[2019-11-07] MEDS: Ketorolac Tromethamine 30 MG/ML VIAL IVP PRN (20:48)
[2019-11-08] MEDS: Lisinopril 20 MG TAB PO SCH (07:57)
[2019-11-08] MEDS: Ketorolac Tromethamine 30 MG/ML VIAL IVP PRN (07:58)
[2019-11-08] MEDS: Famotidine 20 MG TAB PO SCH (07:58)
[2019-11-08] MEDS: Enoxaparin Sodium 40 MG/0.4 ML SYRINGE SC SCH (09:42)
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
[2019-11-08 12:41] VITALS: BP 126/66; TEMP 97.4
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
--- NOTE | 2019-11-10 05:26 | PQF ---
[employer] Logistics Analyst [employer] Reports Winform ViewerGILBERT JACQUELIN JEFFRIESMARK ANTHONY AYOUB MD [id number] CLINICAL DOCUMENTATION CLARIFICATION FORM: POST DISCHARGE Addendum to original discharge summary date: ____ Late entry note date: __ DATE: 11/10/2019 ATTN:MARK ANTHONY IVEY MD Please exercise your independent, professional judgment in responding to the clarification form. Clinical indicators are provided on the bottom of this form for your review Please check appropriate box(s): HEART FAILURE: A. TYPE: [ ] Systolic / HFrEF [ ] Diastolic / HFpEF [ ] Combined Systolic / Diastolic B. ACUITY [ ] Acute [ ] Acute on Chronic [ ] Chronic [x ] Other diagnosis Nothing in this record indicates HF as a diagnosis. [ ] Unable to determine In addition, please specify: Present on Admission (POA): [ ] Yes [ ] No [ ] Unable to determine For continuity of documentation, please document condition throughout progress notes and discharge summary. Thank You. CLINICAL INDICATORS - SIGNS / SYMPTOMS / LABS The Patient did have an echocardiogram 55% to 60% in October 2018 - Documented in H&P on 11/05 by Kat Cano Hx of CHF - Documented in H&P on 11/05 by Kat Cano he dines CHF like symptoms - Documented in Consult report on 11/08 by Carline Magallanes RISKS: HTN Afib Recurrent syncope spells - Documented in Consult report on 11/08 by Carline Magallanes TREATMENTS: IV normal saline - Medication report [employer] Analyst [employer] Win[employer]er (This form is maintained as a part of the permanent medical record) 2014 [employer]. All Rights Reserved [email or web address] [not provided] MTDD
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
== END 2019-11-08 16:02 | disposition home or self-care (01) | DRG 312 ==
LOC: ERS 13:34 → 2SW 17:54 → OBSVTOIN 11-07 19:39
PROVIDERS: ADMIT Student in an Organized Health Care Education/Training Program; ATTEND Student in an Organized Health Care Education/Training Program
DX: R55 Syncope and collapse (principal); I47.2 Ventricular tachycardia; I42.9 Cardiomyopathy, unspecified; F17.210 Nicotine dependence, cigarettes, uncomplicated; I11.0 Hypertensive heart disease with heart failure; E78.5 Hyperlipidemia, unspecified; I48.91 Unspecified atrial fibrillation; F41.9 Anxiety disorder, unspecified; F31.9 Bipolar disorder, unspecified; F90.9 Attention-deficit hyperactivity disorder, unspecified type; S20.219A Contusion of unspecified front wall of thorax, initial encounter; Z95.0 Presence of cardiac pacemaker; Z88.8 Allergy status to other drugs, medicaments and biological substances; Z79.899 Other long term (current) drug therapy; V47.5XXA Car driver injured in collision with fixed or stationary object in traffic accident, initial encounter; R07.89 Other chest pain; M23.8X1 Other internal derangements of right knee
CPT/HCPCS: 36415; 70450; 71260; 72125; 74177; 80053; 80061; 80306; 80307; 83735; 84443; 84484; 85025; 85610; 85730; 90471; 90686; 90715; 90732; 93005; 93306; 96361; 96374; 96375; G0008; G0009; G0390; J1650; J1885; J2270; J2405; Q9967

== ENCOUNTER 2020-01-09 01:30 | Emergency (ER) | payer OTHER ==
[2020-01-09] MEDS ORDERED: Lidocaine 1% (PF) 30 ML VIAL ONE (11:23)
== END 2020-01-09 02:06 | disposition left against medical advice (07) ==
LOC: ERS 01:30
DX: Z53.21 Procedure and treatment not carried out due to patient leaving prior to being seen by health care provider (principal)
CPT/HCPCS: J2001

== ENCOUNTER 2020-01-09 10:47 | Emergency (ER) | payer OTHER ==
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
[2020-01-09] MEDS ORDERED: cefTRIAXone\\ROCEPHIN 1 GM VIAL ONE (13:36)
[2020-01-09] MEDS ORDERED: Bacitracin 1 PK ONE (14:00)
== END 2020-01-09 14:15 | disposition home or self-care (01) ==
LOC: ERS 10:47
DX: S31.010A Laceration without foreign body of lower back and pelvis without penetration into retroperitoneum, initial encounter (principal); S61.210A Laceration without foreign body of right index finger without damage to nail, initial encounter; I11.0 Hypertensive heart disease with heart failure; I50.9 Heart failure, unspecified; E78.5 Hyperlipidemia, unspecified; E78.00 Pure hypercholesterolemia, unspecified; I48.91 Unspecified atrial fibrillation; F41.9 Anxiety disorder, unspecified; F31.9 Bipolar disorder, unspecified; F17.210 Nicotine dependence, cigarettes, uncomplicated; W26.8XXA Contact with other sharp object(s), not elsewhere classified, initial encounter
CPT/HCPCS: 12002; 12032; J0696

== ENCOUNTER 2020-08-29 16:14 | Emergency (ER) | payer OTHER ==
[2020-08-29 17:15] LABS: #Basophils 0.1 thou/uL (0.0-0.2); #Eosinphils 0.2 thou/uL (0.0-0.7); #Monocytes 0.6 thou/uL (0.11-0.59); #Neutrophils 4.7 thou/uL (1.40-6.50); %Basophils 1.5 % (0.0-1.0); %Eosinophils 2.3 % (0.0-10.0); %Lymphocytes 41.2 % (21.0-51.0); %Monocytes 5.9 % (0.0-10.0); %Neutrophils 49.1 % (42.0-75.0); Hemoglobin 15.1 g/dL (14.0-18.0); Mean Corpuscular HGB CONC 33.8 g/dL (32.0-36.0); Mean Corpuscular Hemoglobin 29.6 pg (27.0-31.0); Mean Corpuscular Volume 87.5 fL (78.0-98.0); Mean Platelet Volume 7.1 fL (7.4-10.4); Platelet Count 273 thou/uL (130-400); RBC Distribution Width 12.5 % (11.5-14.5); White Blood Cell (WBC) Count 9.7 thou/uL (4.8-10.8)
[2020-08-29] MEDS ORDERED: Ketorolac Tromethamine 30 MG/ML VIAL ONE (17:25)
[2020-08-29 17:41] LABS: ALT (SGPT) 26 U/L (8-55); AST (SGOT) 28 U/L (5-34); Albumin 4.2 g/dL (3.5-5.0); Alkaline Phosphatase 85 U/L (40-110); Anion Gap 14 mmol/L (10-20); BUN (Urea Nitrogen) 14 mg/dL (8.9-20.6); Bilirubin, Total 0.3 mg/dL (0.2-1.2); Calc. Creatinine Clearance 0 mL/min (70-130); Calcium 8.9 mg/dL (7.8-10.44); Carbon Dioxide 24 mmol/L (22-29); Chloride 103 mmol/L (98-107); Estimated GFR-MDRD Greater than 90; Globulin 3.6 g/dL (2.4-3.5); Glucose 100 mg/dL (70-105); Lipase 25 U/L (8-78); Potassium 3.7 mmol/L (3.5-5.1); Protein, Total 7.8 g/dL (6.0-8.3); Sodium 137 mmol/L (136-145)
--- NOTE | 2020-08-29 17:46 | CT ---
Exam: Abdomen CT without contrast Pelvic CT without contrast HISTORY: Right flank pain. Right rib pain x2 days COMPARISON: None FINDINGS: Abdomen CT: Lung bases:Clear Heart size: Normal heart size Aorta: Normal caliber. No periaortic fat stranding Solid organs: Limited evaluation by the lack of IV contrast. Grossly no solid organ abnormality Lymph nodes: No gastrohepatic, retrocrural or periportal lymphadenopathy Gallbladder: Contracted Mesentery: No mass, free air or free fluid. Enlarged scattered mesenteric lymph nodes, may represent mesenteric lymphadenitis. Primer Inspector enlarged lymph node measures 1.1 x 0.7 cm Kidneys: Bilaterally, no hydronephrosis, nephrolithiasis or perinephric fat stranding. Bilateral uret ers have a normal caliber. No hydroureter, periureteral fat stranding or ureterolithiasis. Alimentary canal: Limited evaluation by the lack of oral contrast. No bowel obstruction. Normal ileoc ecal junction. Normal caliber appendix. Scattered fecal material in a nondistended, nondilated colon. Diverticulosis, without evidence of diverticulitis CT PELVIS: No mass, adenopathy, free air or free fluid. Urinary bladder: Unremarkable. Osseous structures: No lytic or blastic lesions IMPRESSION: 1. No evidence of obstructive uropathy 2. Normal caliber appendix. 3. Mildly enlarged mesenteric lymph nodes, the right hemiabdomen. Correlate for mesenteric lymphadeni tis.
== END 2020-08-29 18:22 | disposition home or self-care (01) ==
LOC: ERS 16:14
DX: S29.012A Strain of muscle and tendon of back wall of thorax, initial encounter (principal); I88.0 Nonspecific mesenteric lymphadenitis; E78.5 Hyperlipidemia, unspecified; I11.0 Hypertensive heart disease with heart failure; I49.1 Atrial premature depolarization; F32.9 Major depressive disorder, single episode, unspecified; F17.210 Nicotine dependence, cigarettes, uncomplicated; Z79.899 Other long term (current) drug therapy; X58.XXXA Exposure to other specified factors, initial encounter
CPT/HCPCS: 74176; 80053; 83690; 84484; 85025; 85379; 93005; 96374; J1885

== ENCOUNTER 2021-01-15 21:33 | Emergency (ER) | payer OTHER ==
[2021-01-15] MEDS ORDERED: Acetaminophen 500 MG TAB ONE (22:07)
[2021-01-15 22:43] LABS: ALT (SGPT) 21 U/L (8-55); AST (SGOT) 19 U/L (5-34); Albumin 4.2 g/dL (3.5-5.0); Alkaline Phosphatase 84 U/L (40-110); Anion Gap 13 mmol/L (10-20); BUN (Urea Nitrogen) 17 mg/dL (8.9-20.6); Bilirubin, Total 0.4 mg/dL (0.2-1.2); Calc. Creatinine Clearance 0 mL/min (70-130); Calcium 8.7 mg/dL (7.8-10.44); Carbon Dioxide 22 mmol/L (22-29); Chloride 105 mmol/L (98-107); Globulin 3.6 g/dL (2.4-3.5); Glucose 113 mg/dL (70-105); Protein, Total 7.8 g/dL (6.0-8.3); Sodium 136 mmol/L (136-145)
[2021-01-15 22:49] LABS: #Basophils 0.1 thou/uL (0.0-0.2); #Eosinphils 0.1 thou/uL (0.0-0.7); #Monocytes 0.8 thou/uL (0.11-0.59); #Neutrophils 7.6 thou/uL (1.40-6.50); %Basophils 0.9 % (0.0-1.0); %Eosinophils 1.1 % (0.0-10.0); %Lymphocytes 26.2 % (21.0-51.0); %Monocytes 6.4 % (0.0-10.0); %Neutrophils 65.4 % (42.0-75.0); Hemoglobin 14.1 g/dL (14.0-18.0); Mean Corpuscular HGB CONC 33.3 g/dL (32.0-36.0); Mean Corpuscular Hemoglobin 28.9 pg (27.0-31.0); Mean Corpuscular Volume 86.9 fL (78.0-98.0); Mean Platelet Volume 6.6 fL (7.4-10.4); Platelet Count 262 thou/uL (130-400); RBC Distribution Width 12.3 % (11.5-14.5); Red Blood Cell (RBC) Count 4.89 mill/uL (4.70-6.10); White Blood Cell (WBC) Count 11.6 thou/uL (4.8-10.8)
--- NOTE | 2021-01-15 22:51 | RAD ---
Chest AP view INDICATION: Chest pain COMPARISON: July 27, 2019 FINDINGS: Lungs: The lungs are clear Cardiac silhouette: Multi lead pacemaker is unchanged. Heart size is normal. Pulmonary vasculature: Normal Pleural spaces: No pleural effusion or pneumothorax is demonstrated. Upper abdomen: No abnormality seen. Osseous structures: No acute osseous abnormality. Additional findings: None. IMPRESSION: No acute cardiopulmonary abnormality.
[2021-01-15 23:01] LABS: SARS-CoV-2 NAA Rapid Test Not Detected (NotDetected)
--- NOTE | 2021-01-16 00:11 | CT ---
CTA Angio Chest W WO Con 01/15/2021 11:45 PM Indication: Chest pain with tachycardia Technique: Multiple CTA images were obtained of the thorax with IV contrast. 3-D rendering: MIP leighton nstructed images were created and reviewed. Comparison: CT of the chest, abdomen and pelvis dated October 02, 2009 and a November 05, 2019 exam Findings: Pulmonary arteries: No central or segmental pulmonary embolus is evident. Heart and Aorta: Multi lead pacemaker overlying left chest wall. Heart and great vessels reveal no d efinite acute abnormality. Mediastinum:Calcified lymph nodes within the mediastinum and left hilar region Lungs:There is a stable sub-4 mm subpleural pulmonary nodule within the right upper lobe. There is a calcified granuloma in the left lower lobe. There is subsegmental volume loss within the right lung base. Pleural space: Clear. Upper Abdomen: No acute abnormality. Osseous Structures: No acute osseous abnormality. Soft tissues:No abnormality. Other findings:None. Impression: 1. No central or segmental pulmonary embolus. 2. Findings of prior granulomatous disease. 3. Right upper lobe noncalcified pulmonary nodule has been stable since 2008 and is benign.
== END 2021-01-16 00:20 | disposition home or self-care (01) ==
LOC: ERS 21:33
DX: J18.9 Pneumonia, unspecified organism (principal); Z20.822 Contact with and (suspected) exposure to COVID-19; E78.5 Hyperlipidemia, unspecified; I11.0 Hypertensive heart disease with heart failure; I50.9 Heart failure, unspecified; I48.91 Unspecified atrial fibrillation; F17.210 Nicotine dependence, cigarettes, uncomplicated
CPT/HCPCS: 0240U; 36415; 71045; 71275; 80053; 83880; 84484; 85025; 85379; 93005; Q9967

== ENCOUNTER 2021-02-26 03:00 | Emergency (ER) | payer OTHER ==
[2021-02-26 03:25] LABS: #Basophils 0.1 thou/uL (0.0-0.2); #Eosinphils 0.2 thou/uL (0.0-0.7); #Lymphocytes 3.5 thou/uL (1.20-3.40); #Monocytes 0.6 thou/uL (0.11-0.59); #Neutrophils 5.6 thou/uL (1.40-6.50); %Basophils 0.8 % (0.0-1.0); %Eosinophils 2.3 % (0.0-10.0); %Lymphocytes 35.1 % (21.0-51.0); %Monocytes 5.9 % (0.0-10.0); %Neutrophils 55.8 % (42.0-75.0); Hemoglobin 13.7 g/dL (14.0-18.0); Mean Corpuscular HGB CONC 32.4 g/dL (32.0-36.0); Mean Corpuscular Hemoglobin 28.5 pg (27.0-31.0); Mean Platelet Volume 6.6 fL (7.4-10.4); Platelet Count 233 thou/uL (130-400); RBC Distribution Width 12.5 % (11.5-14.5); Red Blood Cell (RBC) Count 4.79 mill/uL (4.70-6.10)
[2021-02-26 03:50] LABS: ALT (SGPT) 20 U/L (8-55); AST (SGOT) 15 U/L (5-34); Albumin 3.5 g/dL (3.5-5.0); Alkaline Phosphatase 73 U/L (40-110); Anion Gap 13 mmol/L (10-20); BUN (Urea Nitrogen) 14 mg/dL (8.9-20.6); Bilirubin, Total 0.2 mg/dL (0.2-1.2); Calc. Creatinine Clearance 0 mL/min (70-130); Carbon Dioxide 20 mmol/L (22-29); Chloride 108 mmol/L (98-107); Globulin 2.9 g/dL (2.4-3.5); Glucose 111 mg/dL (70-105); Lipase 12 U/L (8-78); Potassium 3.4 mmol/L (3.5-5.1); Protein, Total 6.4 g/dL (6.0-8.3); Sodium 138 mmol/L (136-145)
== END 2021-02-26 04:30 | disposition home or self-care (01) ==
LOC: ERS 03:00
DX: R07.2 Precordial pain (principal); E78.5 Hyperlipidemia, unspecified; E78.00 Pure hypercholesterolemia, unspecified; I48.91 Unspecified atrial fibrillation; I11.0 Hypertensive heart disease with heart failure; I50.9 Heart failure, unspecified; F17.210 Nicotine dependence, cigarettes, uncomplicated; Z95.0 Presence of cardiac pacemaker; Z79.899 Other long term (current) drug therapy
CPT/HCPCS: 36415; 71045; 80053; 83690; 84484; 85025; 93005; 94760

== ENCOUNTER 2021-08-04 05:29 | Emergency (ER) | payer OTHER ==
[2021-08-04] MEDS ORDERED: Acetaminophen 500 MG TAB ONE (05:54)
[2021-08-04 06:05] LABS: #Basophils 0.1 thou/uL (0.0-0.2); #Lymphocytes 2.9 thou/uL (1.20-3.40); #Monocytes 0.9 thou/uL (0.11-0.59); %Basophils 0.8 % (0.0-1.0); %Eosinophils 0.6 % (0.0-10.0); %Lymphocytes 42.1 % (21.0-51.0); %Monocytes 13.4 % (0.0-10.0); Hemoglobin 14.8 g/dL (14.0-18.0); Mean Corpuscular HGB CONC 32.5 g/dL (32.0-36.0); Mean Corpuscular Hemoglobin 28.2 pg (27.0-31.0); Mean Corpuscular Volume 86.8 fL (78.0-98.0); Mean Platelet Volume 6.9 fL (7.4-10.4); Platelet Count 250 thou/uL (130-400); RBC Distribution Width 12.3 % (11.5-14.5); Red Blood Cell (RBC) Count 5.24 mill/uL (4.70-6.10); White Blood Cell (WBC) Count 6.9 thou/uL (4.8-10.8)
[2021-08-04] MEDS ORDERED: diphenhydrAMINE 50 MG/ML VIAL ONE (06:07)
[2021-08-04] MEDS ORDERED: Digoxin 0.5 MG/2 ML AMP ONE (06:07)
[2021-08-04] MEDS ORDERED: Ketorolac Tromethamine 30 MG/ML VIAL ONE (06:07)
[2021-08-04] MEDS ORDERED: Metoclopramide HCl 10 MG/2 ML VIAL ONE (06:07)
[2021-08-04 06:30] LABS: ALT (SGPT) 23 U/L (8-55); AST (SGOT) 23 U/L (5-34); Albumin 4.1 g/dL (3.5-5.0); Alkaline Phosphatase 74 U/L (40-110); Anion Gap 11 mmol/L (10-20); BUN (Urea Nitrogen) 9 mg/dL (8.9-20.6); Bilirubin, Total 0.3 mg/dL (0.2-1.2); Calc. Creatinine Clearance 0 mL/min (70-130); Calcium 8.6 mg/dL (7.8-10.44); Carbon Dioxide 25 mmol/L (22-29); Chloride 101 mmol/L (98-107); Globulin 3.5 g/dL (2.4-3.5); Glucose 113 mg/dL (70-105); Protein, Total 7.6 g/dL (6.0-8.3); Sodium 133 mmol/L (136-145)
[2021-08-04 06:48] LABS: SARS-CoV-2 NAA Rapid Test DETECTED (NotDetected)
== END 2021-08-04 07:48 | disposition home or self-care (01) ==
LOC: ERS 05:29
DX: U07.1 COVID-19 (principal); E78.5 Hyperlipidemia, unspecified; I11.0 Hypertensive heart disease with heart failure; I50.9 Heart failure, unspecified; F17.210 Nicotine dependence, cigarettes, uncomplicated
CPT/HCPCS: 0240U; 71045; 80053; 83880; 84484; 85025; 93005; 96374; 96375; J1160; J1200; J1885; J2765

== ENCOUNTER 2022-03-07 00:30 | Emergency (ER) | payer OTHER, BC ==
[2022-03-07 01:03] LABS: #Basophils 0.1 thou/uL (0.0-0.2); #Eosinphils 0.3 thou/uL (0.0-0.7); #Lymphocytes 2.8 thou/uL (1.20-3.40); #Monocytes 0.7 thou/uL (0.11-0.59); #Neutrophils 5.6 thou/uL (1.40-6.50); %Basophils 0.7 % (0.0-1.0); %Lymphocytes 29.9 % (21.0-51.0); %Monocytes 7.1 % (0.0-10.0); %Neutrophils 59.3 % (42.0-75.0); Hemoglobin 14.4 g/dL (14.0-18.0); Mean Corpuscular HGB CONC 32.7 g/dL (32.0-36.0); Mean Corpuscular Hemoglobin 29.6 pg (27.0-31.0); Mean Corpuscular Volume 90.4 fL (78.0-98.0); Mean Platelet Volume 6.5 fL (7.4-10.4); Platelet Count 266 thou/uL (130-400); RBC Distribution Width 12.6 % (11.5-14.5); Red Blood Cell (RBC) Count 4.85 mill/uL (4.70-6.10); White Blood Cell (WBC) Count 9.4 thou/uL (4.8-10.8)
[2022-03-07 01:17] LABS: ALT (SGPT) 20 U/L (8-55); AST (SGOT) 20 U/L (5-34); Albumin 3.9 g/dL (3.5-5.0); Alkaline Phosphatase 85 U/L (40-110); Anion Gap 12 mmol/L (10-20); BUN (Urea Nitrogen) 13 mg/dL (8.9-20.6); Bilirubin, Total 0.2 mg/dL (0.2-1.2); Calc. Creatinine Clearance 0 mL/min (70-130); Calcium 8.9 mg/dL (7.8-10.44); Carbon Dioxide 21 mmol/L (22-29); Chloride 110 mmol/L (98-107); Glucose 200 mg/dL (70-105); Protein, Total 6.9 g/dL (6.0-8.3); Sodium 139 mmol/L (136-145)
== END 2022-03-07 02:41 | disposition left against medical advice (07) ==
LOC: ERS 00:30
DX: R07.89 Other chest pain (principal); I11.0 Hypertensive heart disease with heart failure; I50.9 Heart failure, unspecified; I48.91 Unspecified atrial fibrillation; E11.9 Type 2 diabetes mellitus without complications; E78.5 Hyperlipidemia, unspecified; E78.00 Pure hypercholesterolemia, unspecified; F17.210 Nicotine dependence, cigarettes, uncomplicated; F17.290 Nicotine dependence, other tobacco product, uncomplicated
CPT/HCPCS: 36415; 71045; 80053; 83880; 84484; 85025; 93005

== ENCOUNTER 2022-04-23 10:15 | Emergency (ER) | payer OTHER ==
[2022-04-23 10:55] LABS: #Eosinphils 0.2 thou/uL (0.0-0.7); #Lymphocytes 3.5 thou/uL (1.20-3.40); #Monocytes 0.5 thou/uL (0.11-0.59); #Neutrophils 4.9 thou/uL (1.40-6.50); %Basophils 0.5 % (0.0-1.0); %Eosinophils 2.5 % (0.0-10.0); %Lymphocytes 38.1 % (21.0-51.0); %Monocytes 5.8 % (0.0-10.0); %Neutrophils 53.1 % (42.0-75.0); Hemoglobin 15.1 g/dL (14.0-18.0); Mean Corpuscular HGB CONC 32.1 g/dL (32.0-36.0); Mean Corpuscular Hemoglobin 28.9 pg (27.0-31.0); Mean Platelet Volume 6.6 fL (7.4-10.4); Platelet Count 282 thou/uL (130-400); RBC Distribution Width 12.4 % (11.5-14.5); Red Blood Cell (RBC) Count 5.23 mill/uL (4.70-6.10); White Blood Cell (WBC) Count 9.3 thou/uL (4.8-10.8)
[2022-04-23 11:16] LABS: ALT (SGPT) 20 U/L (8-55); AST (SGOT) 18 U/L (5-34); Alkaline Phosphatase 87 U/L (40-110); Anion Gap 11 mmol/L (10-20); BUN (Urea Nitrogen) 14 mg/dL (8.9-20.6); Bilirubin, Total 0.3 mg/dL (0.2-1.2); Calc. Creatinine Clearance 0 mL/min (70-130); Calcium 8.5 mg/dL (7.8-10.44); Carbon Dioxide 22 mmol/L (22-29); Chloride 107 mmol/L (98-107); Globulin 3.5 g/dL (2.4-3.5); Glucose 152 mg/dL (70-105); Potassium 3.9 mmol/L (3.5-5.1); Protein, Total 7.5 g/dL (6.0-8.3); Sodium 136 mmol/L (136-145)
[2022-04-23] MEDS ORDERED: Aspirin Chewable 81 MG TAB ONE (13:42)
== END 2022-04-23 15:19 | disposition home or self-care (01) ==
LOC: ERS 10:15
DX: E86.0 Dehydration (principal); R07.89 Other chest pain; R42 Dizziness and giddiness; E11.9 Type 2 diabetes mellitus without complications; I11.0 Hypertensive heart disease with heart failure; I50.9 Heart failure, unspecified; I48.91 Unspecified atrial fibrillation; E78.5 Hyperlipidemia, unspecified; E78.00 Pure hypercholesterolemia, unspecified; F17.210 Nicotine dependence, cigarettes, uncomplicated; Z79.84 Long term (current) use of oral hypoglycemic drugs; Z79.899 Other long term (current) drug therapy
CPT/HCPCS: 36415; 71046; 80053; 83690; 83880; 84484; 85025; 93005; 96360

== ENCOUNTER 2022-07-09 08:07 | Emergency (ER) | payer BC, OTHER ==
[2022-07-09 08:52] LABS: #Basophils 0.1 thou/uL (0.0-0.2); #Eosinphils 0.2 thou/uL (0.0-0.7); #Lymphocytes 3.3 thou/uL (1.20-3.40); #Monocytes 0.5 thou/uL (0.11-0.59); #Neutrophils 4.6 thou/uL (1.40-6.50); %Basophils 0.9 % (0.0-1.0); %Eosinophils 2.6 % (0.0-10.0); %Lymphocytes 38.2 % (21.0-51.0); %Monocytes 5.7 % (0.0-10.0); %Neutrophils 52.6 % (42.0-75.0); Hemoglobin 14.2 g/dL (14.0-18.0); Mean Corpuscular HGB CONC 32.7 g/dL (32.0-36.0); Mean Corpuscular Hemoglobin 29.3 pg (27.0-31.0); Mean Corpuscular Volume 89.5 fL (78.0-98.0); Platelet Count 260 thou/uL (130-400); RBC Distribution Width 12.5 % (11.5-14.5); Red Blood Cell (RBC) Count 4.85 mill/uL (4.70-6.10); White Blood Cell (WBC) Count 8.7 thou/uL (4.8-10.8)
[2022-07-09 09:01] LABS: ALT (SGPT) 18 U/L (8-55); AST (SGOT) 16 U/L (5-34); Albumin 3.8 g/dL (3.5-5.0); Alkaline Phosphatase 75 U/L (40-110); Anion Gap 11 mmol/L (10-20); BUN (Urea Nitrogen) 11 mg/dL (8.9-20.6); Bilirubin, Total 0.6 mg/dL (0.2-1.2); Calc. Creatinine Clearance 0 mL/min (70-130); Calcium 8.8 mg/dL (7.8-10.44); Carbon Dioxide 24 mmol/L (22-29); Chloride 113 mmol/L (98-107); Estimated GFR 119; Globulin 3.2 g/dL (2.4-3.5); Glucose 124 mg/dL (70-105); Lipase 14 U/L (8-78); Magnesium 1.9 mg/dL (1.6-2.6); Potassium 4.1 mmol/L (3.5-5.1); Sodium 144 mmol/L (136-145)
== END 2022-07-09 11:55 | disposition home or self-care (01) ==
LOC: ERS 08:07
DX: R55 Syncope and collapse (principal); R19.7 Diarrhea, unspecified; R11.2 Nausea with vomiting, unspecified; E78.00 Pure hypercholesterolemia, unspecified; I11.0 Hypertensive heart disease with heart failure; I50.9 Heart failure, unspecified; I48.91 Unspecified atrial fibrillation; E11.9 Type 2 diabetes mellitus without complications; F17.210 Nicotine dependence, cigarettes, uncomplicated
CPT/HCPCS: 36415; 71045; 80053; 83605; 83690; 83735; 83880; 84443; 84484; 85025; 85379; 93005; 94760; 96360; 96361

== ENCOUNTER 2022-08-12 10:02 | Emergency (ER) | payer BC, OTHER ==
[2022-08-12 11:02] LABS: #Basophils 0.1 thou/uL (0.0-0.2); #Eosinphils 0.1 thou/uL (0.0-0.7); #Lymphocytes 3.2 thou/uL (1.20-3.40); #Monocytes 0.5 thou/uL (0.11-0.59); #Neutrophils 5.8 thou/uL (1.40-6.50); %Basophils 0.6 % (0.0-1.0); %Eosinophils 0.8 % (0.0-10.0); %Lymphocytes 33.5 % (21.0-51.0); %Neutrophils 60.1 % (42.0-75.0); Hemoglobin 14.3 g/dL (14.0-18.0); Mean Corpuscular HGB CONC 32.4 g/dL (32.0-36.0); Mean Corpuscular Hemoglobin 28.8 pg (27.0-31.0); Mean Corpuscular Volume 88.8 fL (78.0-98.0); Mean Platelet Volume 6.8 fL (7.4-10.4); Platelet Count 290 thou/uL (130-400); RBC Distribution Width 12.4 % (11.5-14.5); Red Blood Cell (RBC) Count 4.99 mill/uL (4.70-6.10); White Blood Cell (WBC) Count 9.6 thou/uL (4.8-10.8)
[2022-08-12 11:21] LABS: Magnesium 1.7 mg/dL (1.6-2.6)
[2022-08-12 11:30] LABS: ALT (SGPT) 19 U/L (8-55); AST (SGOT) 16 U/L (5-34); Acetaminophen Less than 10.0 mcg/mL (10.0-30.0); Alcohol Less than 10 mg/dL (Less than 10); Alkaline Phosphatase 81 U/L (40-110); Anion Gap 13 mmol/L (10-20); BUN (Urea Nitrogen) 10 mg/dL (8.9-20.6); Bilirubin, Total 0.4 mg/dL (0.2-1.2); Calc. Creatinine Clearance 0 mL/min (70-130); Calcium 8.9 mg/dL (7.8-10.44); Carbon Dioxide 21 mmol/L (22-29); Chloride 108 mmol/L (98-107); Estimated GFR 113; Globulin 3.2 g/dL (2.4-3.5); Glucose 105 mg/dL (70-105); Protein, Total 7.2 g/dL (6.0-8.3); Salicylate Less than 8.0 mg/dL (15.0-30.0); Sodium 138 mmol/L (136-145)
[2022-08-12] MEDS ORDERED: Acetaminophen 500 MG TAB ONE ×2 (12:44→23:01)
[2022-08-12 15:00] LABS: Bilirubin Negative (Negative); Blood, Urine Negative (Negative); Clarity Clear (Clear); Glucose, Urine (Dipstick) Normal (Negative); Ketone, Urine Negative (Negative); Leukocyte Negative Leu/uL (Negative); Nitrite Negative (Negative); Protein, Urine (Dipstick) Negative (Neg-Trace); Specific Gravity, Urine 1.014 (1.002-1.036); Urobilinogen Normal mg/dL (Less than 2); pH, Urine 5.5 (5.0-9.0)
[2022-08-12 15:08] LABS: Amphetamine Not Detected (NotDetected); Barbiturates Screen Not Detected (NotDetected); Benzodiazepine Screen Not Detected (NotDetected); Cocaine Metabolite Screen Not Detected (NotDetected); Methadone Not Detected (NotDetected); Methamphetamine Not Detected (NotDetected); Opiate Screen Not Detected (NotDetected); Oxycodone Screen Not Detected (NotDetected); Phencyclidine (PCP) Not Detected (NotDetected); THC/Cannabinoid Screen Not Detected (NotDetected); Tricyclic Screen Not Detected (NotDetected)
[2022-08-12] MEDS ORDERED: Ketorolac Tromethamine 30 MG/ML VIAL ONE (19:57)
[2022-08-12] MEDS ORDERED: Metoclopramide HCl 10 MG/2 ML VIAL ONE (19:57)
[2022-08-12] MEDS ORDERED: Metoclopramide HCl 10 MG TAB ONE (19:59)
[2022-08-12] MEDS ORDERED: hydrOXYzine 25 MG TAB ONE (23:01)
[2022-08-13] MEDS ORDERED: Nicotine 14 MG PATCH ONE (14:25)
[2022-08-13] MEDS ORDERED: hydrALAZINE 25 MG TAB ONE (14:25)
[2022-08-13] MEDS ORDERED: hydrOXYzine 25 MG TAB ONE (14:36)
[2022-08-13 18:50] LABS: SARS-CoV-2 NAA Rapid Test Not Detected (NotDetected)
== END 2022-08-13 21:35 ==
LOC: ERS 10:02
DX: T50.902A Poisoning by unspecified drugs, medicaments and biological substances, intentional self-harm, initial encounter (principal); E78.00 Pure hypercholesterolemia, unspecified; I48.91 Unspecified atrial fibrillation; I11.0 Hypertensive heart disease with heart failure; I50.9 Heart failure, unspecified; E11.9 Type 2 diabetes mellitus without complications; F17.210 Nicotine dependence, cigarettes, uncomplicated; Z95.0 Presence of cardiac pacemaker; Z20.822 Contact with and (suspected) exposure to COVID-19
CPT/HCPCS: 36415; 71045; 80053; 80306; 80307; 81003; 83735; 84443; 84484; 85025; 93005; 96374; J1885; J2765; U0002

== ENCOUNTER 2022-09-16 02:36 | Emergency (ER) | payer BC, OTHER ==
[2022-09-16 04:25] LABS: #Basophils 0.1 thou/uL (0.0-0.2); #Eosinphils 0.4 thou/uL (0.0-0.7); #Lymphocytes 4.6 thou/uL (1.20-3.40); #Monocytes 0.6 thou/uL (0.11-0.59); #Neutrophils 4.6 thou/uL (1.40-6.50); %Eosinophils 4.1 % (0.0-10.0); %Lymphocytes 44.4 % (21.0-51.0); %Monocytes 5.9 % (0.0-10.0); %Neutrophils 44.7 % (42.0-75.0); Hemoglobin 14.5 g/dL (14.0-18.0); Mean Corpuscular HGB CONC 33.7 g/dL (32.0-36.0); Mean Corpuscular Volume 86.1 fL (78.0-98.0); Mean Platelet Volume 7.2 fL (7.4-10.4); Platelet Count 268 thou/uL (130-400); RBC Distribution Width 12.2 % (11.5-14.5); Red Blood Cell (RBC) Count 5.01 mill/uL (4.70-6.10); White Blood Cell (WBC) Count 10.4 thou/uL (4.8-10.8)
[2022-09-16 04:43] LABS: ALT (SGPT) 27 U/L (8-55); AST (SGOT) 14 U/L (5-34); Albumin 3.7 g/dL (3.5-5.0); Alkaline Phosphatase 86 U/L (40-110); Anion Gap 11 mmol/L (10-20); BUN (Urea Nitrogen) 14 mg/dL (8.9-20.6); Bilirubin, Total 0.3 mg/dL (0.2-1.2); Calc. Creatinine Clearance 0 mL/min (70-130); Calcium 8.7 mg/dL (7.8-10.44); Carbon Dioxide 20 mmol/L (22-29); Chloride 108 mmol/L (98-107); Estimated GFR 97; Globulin 3.2 g/dL (2.4-3.5); Glucose 291 mg/dL (70-105); Magnesium 1.7 mg/dL (1.6-2.6); Potassium 3.7 mmol/L (3.5-5.1); Protein, Total 6.9 g/dL (6.0-8.3); Sodium 135 mmol/L (136-145)
[2022-09-16] MEDS ORDERED: Nitroglycerin 0.4 MG TAB 1 EACH ONE (06:15)
== END 2022-09-16 07:12 | disposition home or self-care (01) ==
LOC: ERS 02:36
DX: R07.9 Chest pain, unspecified (principal); E11.65 Type 2 diabetes mellitus with hyperglycemia; I11.0 Hypertensive heart disease with heart failure; I50.9 Heart failure, unspecified; E78.00 Pure hypercholesterolemia, unspecified; I48.91 Unspecified atrial fibrillation; F17.210 Nicotine dependence, cigarettes, uncomplicated; Z95.0 Presence of cardiac pacemaker
CPT/HCPCS: 36415; 36416; 71045; 80053; 82010; 83735; 83880; 84484; 85025; 93005